=== PATIENT | female | born 1965 | race African-American/Black ===

== ENCOUNTER 2023-01-10 18:38 | Emergency (ER) | payer MEDICARE ==
[~2023-01-10] VITALS: Ht 172.7 cm; Wt 68.0 kg
[2023-01-10 18:47] VITALS: BP 113/53; PULSE 92; RESP 18; TEMP 98.2; O2SAT 98
[2023-01-10] MEDS ORDERED: ACETAMINOPHEN 325MG TABLET PO ONE (20:15)
[2023-01-10 20:34] LABS: CLARITY URINE TURBID (CLEAR); COLOR URINE DARK YELLOW (YELLOW); KETONES URINE 1+ (NEGATIVE); LEUKOCYTE ESTERASE URINE 2+ (NEGATIVE); NITRITE URINE NEGATIVE (NEGATIVE); OCCULT BLOOD URINE NEGATIVE (NEGATIVE); PH URINE 5.5 (4.5-8.0); PROTEIN URINE 2+ (NEGATIVE); SPECIFIC GRAVITY URINE 1.037 (1.005-1.030)
[2023-01-10 20:44] LABS: *AMPHETAMINES SCREEN URINE NEGATIVE (NEGATIVE); *BARBITURATES SCREEN URINE NEGATIVE (NEGATIVE); *BENZODIAZEPINES SCREEN URINE NEGATIVE (NEGATIVE); *COCAINE SCREEN URINE NEGATIVE (NEGATIVE); CANNABINOID URINE SCREEN NEGATIVE (NEGATIVE); METHADONE URINE SCREEN NEGATIVE (NEGATIVE); OPIATES URINE SCREEN NEGATIVE (NEGATIVE); PHENCYCLIDINE URINE SCREEN NEGATIVE (NEGATIVE)
[2023-01-10 21:55] LABS: BASOPHILS % 0.7 % (0.0-2.0); HEMATOCRIT. 31.5 % (36.0-48.0); MEAN CORPUSCULAR HEMOGLOBIN 25.6 pg (28.0-32.0); MEAN CORPUSCULAR VOLUME 80.9 fL (81.0-99.0); MEAN PLATELET VOLUME 7.7 fl (7.4-10.4); MONOCYTES % 7.3 % (2.0-8.0); PLATELET 300 x1000/uL (130-400); RED CELL DISTRIBUTION WIDTH 21.8 % (11.6-14.6)
[2023-01-10 21:56] LABS: CHLORIDE 113 mEq/L (98-107)
[2023-01-10 22:07] LABS: ETHANOL BLOOD < 10 mg/dL (-10)
[2023-01-11] MEDS ORDERED: CEPH500C2 MT (00:03)
[2023-01-11] MEDS ORDERED: OLANZAPINE 10MG TABLET PO STA (03:47)
[2023-01-11] MEDS ORDERED: DIPHENHYDRAMINE 25MG CAPSULE PO ONE (04:00)
[2023-01-12] MEDS ORDERED: DIPH25CA83 PO (13:54)
[2023-01-12] MEDS ORDERED: FERR325T6 PO (13:54)
[2023-01-12] MEDS ORDERED: METF-415 PO (13:54)
[2023-01-12] MEDS ORDERED: SENN-22 PO (13:54)
[2023-01-12] MEDS ORDERED: BISA10SU62 RC (13:54)
[2023-01-12] MEDS ORDERED: LORA-250 PO (13:54)
[2023-01-12] MEDS ORDERED: INSU100V51 (13:54)
[2023-01-12] MEDS ORDERED: INSLIS SUBCUT (13:54)
[2023-01-12] MEDS ORDERED: LACT10SO81 MT (13:54)
[2023-01-12] MEDS ORDERED: LITHBID PO (13:54)
[2023-01-12] MEDS ORDERED: LIP40 PO (13:54)
[2023-01-12] MEDS ORDERED: ALBU2.5V13 IH (13:54)
[2023-01-12] MEDS ORDERED: OLAN2.5T29 MT (13:54)
[2023-01-12] MEDS ORDERED: MOM MT (13:54)
[2023-01-12] MEDS ORDERED: TRAZ-251 PO (13:54)
== END 2023-01-11 10:25 | disposition home or self-care (01) ==
LOC: ER 18:38
DX: S00.93XA Contusion of unspecified part of head, initial encounter (principal); R45.6 Violent behavior; F31.9 Bipolar disorder, unspecified; J44.9 Chronic obstructive pulmonary disease, unspecified; E11.9 Type 2 diabetes mellitus without complications; K21.9 Gastro-esophageal reflux disease without esophagitis; F20.9 Schizophrenia, unspecified; N39.0 Urinary tract infection, site not specified; X58.XXXA Exposure to other specified factors, initial encounter; Y93.89 Activity, other specified; Y92.89 Other specified places as the place of occurrence of the external cause; Y99.8 Other external cause status
CPT/HCPCS: 80053; 80305; 81003; 80307; 80329; 80320; 85025; 87086; 36415; 70450; 99284; Q0163; G0480